=== PATIENT | female | born 1985 | race Caucasian/White ===

== ENCOUNTER → 2021-09-19 08:38 | Outpatient (BNVA) | payer MEDICAID, SELFPAY | PROVIDERS: PCP Family Medicine; Referring Provider Family Medicine; Visit Provider Surgery | DX: R22.42 Localized swelling, mass and lump, left lower limb (principal) | CPT/HCPCS: 99202 ==

== ENCOUNTER 2021-10-22 08:55 | Day surgery (SDC) | payer MEDICAID, SELFPAY ==
[2021-10-15 16:36] VITALS: BMI 40.2
[2021-10-22 09:11] VITALS: BP 129/87; PULSE 78; RESP 16; TEMP 36.3; O2SAT 97
[2021-10-22 09:11] LABS: UPreg QC Valid YES; Urine Pregnancy NEGATIVE (NEGATIVE)
[2021-10-22] MEDS: Lactated Ringers 1,000 ML 100 ML IVCONT (09:38)
--- NOTE | 2021-10-22 09:42 | P.HPSUR_ITS ---
Pre-Procedural Eval Section A Date of Service: 10/22/21 Section B Chief Complaint: mass and lump swelling Details of Present Illness: has mass on left medial thigh, increasing in size Relevant Family History (Specify if Yes): No Relevant Social History: None Present Medications: see Short Stay Collaborative assessment Medical History: Significant History (methadone maintenance) History of Previous Operations: No relevant previous surgery Allergies: Allergies Allergy/AdvReac Type Severity Reaction Status Date / Time hydrocodone [From VICODIN] Allergy Intermediate HIVES Verified 10/15/21 16:32 morphine [MORPHINE] Allergy Intermediate HIVES Verified 10/15/21 16:32 Review of Systems Sugical H&P ROS: Negative: Constitution, Cardiovascular, Respiratory, Neurological, Psychiatric, Hem-Onc, Allergic/Immunologic, Gastrointestinal, G enitourinary, Musculoskeletal, Integumentary, Endocrine and Eyes/Ears/Nose/Throat Exam Surgical H&P Exam: Normal: HEENT, Normal: Heart, Normal: Lungs, Normal: Abdomen, Normal: Skin and Normal: Neurological and Significant Findings: Extremities (large thigh mass on a stalk, medial aspect) Plan Diagnosis/Plan: Unchanged I have reviewed the history and physical and performed a pertinent physical examination on my patient. No changes have occurred unless specified.
--- NOTE | 2021-10-22 09:51 | P.CONAN_ITS ---
HPI - Anesthesia Eval Consult details Narrative: Excis left thigh mass PMFSH Active Problems Active Problems: All Active Problems (Updated 10/15/21 @ 16:35 by Bernice Lopez RN) Mass of left thigh (Acute) Methadone maintenance therapy patient (Acute) Past Medical History Medical History (Updated 10/15/21 @ 16:35 by Bernice Lopez RN) DDD (degenerative disc disease), lumbar Mass of left thigh Methadone maintenance therapy patient Mild heartburn Patient : No Family History Family history of problems with anesthesia: No Surgical History Surgical History H/O section History of back surgery History of tonsillectomy and adenoidectomy Hx of appendectomy History of Problems with Anesthesia: No Social History Social History (Updated 10/15/21 @ 16:34 by Bernice Lopez RN) Are you a primary behavioral health care coordinator to a significant other at home: Yes (2 minor children) Do you presently have visiting nurse or other home services: No Alcohol intake: never Patient Tobacco Use Status: Never used Tobacco Use of substances other than those prescribed or required for medical reasons: No Are you DNR?: No Advance Directives: No Advance Directives Information Provided: Yes Advance Directives on File: No Patient : No FDLMP: 10/13/2021 : No Poor oral hygiene: No Meds Allergies Allergy/AdvReac Type Severity Reaction Status Date / Time hydrocodone [From VICODIN] Allergy Intermediate HIVES Verified 10/15/21 16:32 morphine [MORPHINE] Allergy Intermediate HIVES Verified 10/15/21 16:32 Active Medications: Current Medications Lactated Ringer's (Lr) 1,000 mls @ 100 mls/hr IVCONT .Q10H ALIYA Last Admin: 10/22/21 09:38 Dose: 100 mls/hr Documented by: Home Medications Medication Instructions Recorded Confirmed Last Taken Type methadone 10 mg tablet 101 mg PO DAILY tab 09/19/21 09/19/21 10/22/21 History omeprazole 20 mg capsule,delayed 20 mg PO DAILY PRN 10/15/21 10/15/21 Unknown History release Exam Exam Date and Time: October 22, 2021 0951 Height,Weight and Vital Signs: Height 5 ft 2 in Weight 99.79 kg Last Vital Signs Temp 97.4 F 10/22/21 09:11 Pulse 78 10/22/21 09:11 Resp 16 10/22/21 09:11 BP 129/87 10/22/21 09:11 Pulse Ox 97 10/22/21 09:11 Pertinent Lab Results Pertinent Lab Results: Laboratory Tests 10/22/21 09:00 Urine Test NEGATIVE Airway Mallampati Class: I TM Dist: >3cm Neck ROM: Full Denture: Upper and Lower Heart: ok Lungs: ok Assessment and Plan Final Anesthetic Review Family History of Problems with Anesthesia: No History of Problems with Anesthesia: No NPO: Yes ASA Class: III Final Preanesthetic Review: No Changes in Pt Med Stat, Meds/Allgs Chart Reviewed, Consent Obtained/Reviewed and Anes Risks/Benef Reviewed Patient Risk: Intermediate Procedure Risk: Low Anesthetic Plan Anesthetic Plan: GA, MAC: and Agree w/ Assess. and Plan Disposition: Standard PACU
--- NOTE | 2021-10-22 10:51 | P.OP_ITS ---
Operative Note Operative Note Date of Service: 10/22/21 Narrative: Preop diagnosis: Large mass, medial left thigh Postop diagnosis: The same Procedure: Excision of large mass, medial aspect the left thigh Surgeon: Anson Roberto MD Special Education Resource Room Teacher: MIKE Maya student The patient is a 36-year-old female with a large mass on the left thigh, well- defined, with a narrowingl base, about a cm tall on initial exam. she understood the technique of excision under anesthesia. She was aware of the risks, benefits, and alternatives She was brought to the operating room placed in frogleg position under general anesthesia via laryngeal mask airway. The area of the left thigh which was on the very medial aspect was prepped and draped in the usual sterile fashion. A surgical time-out was done. I infiltrated the line incision with lidocaine 1%. I made an elliptical incision in the skin surrounding this lesion using blade 15. This was carried down through the full-thickness skin subcutaneous fat with electrocautery. We continued to dissect through the he is layer to excise the entire lesion. The mass actually extended deeper into the subcutaneous tissue so we had to continue to sharply dissect with Metzenbaum scissors to separate this from of the fat. This turned out to heavy much deeper base. I continued to separate this with dissection using Metzenbaum scissors and electrocautery until was able to deliver the entire specimen. This had well-defined planes ac tually. The mass measured 12.5 cm long by about 7.5 cm in widest dimension. I irrigated the area of excision. I used electrocautery to achieve hemostasis. Once hemostasis was ensured I reapposed the deep subcutaneous tissue with Dexon 3-0 interrupted sutures. Skin closure was achieved with 3-0 simple interrupted sutures. I infiltrated the area with Marcaine 0.5% for postop analgesia. Dressings were applied and the procedure was completed The patient tolerated procedure well. There were no complication noted. Initial and final counts of sponges and instruments were correct. Estimated blood loss was about 25 cc The patient was extubated without difficulty and transferred to the recovery room with stable vital signs.
--- NOTE | 2021-10-22 10:56 | PM.OP ---
Brief Operative Note Date of Service: 10/22/21 Pre-op diagnosis: large left thigh mass medial aspect Post-op diagnosis: same ( 12 by 7.5 cm) Procedure: excision of large left thigh mass, medial aspect Surgeon: Anson Roberto MD Anesthesia: GLMA Was an Flying [employer] Instructor used for this Procedure?: No Estimated blood loss (mL): 25 Pathology: other ( left eye mass) Condition: stable Disposition: PACU
[2021-10-22 10:58] VITALS: BP 120/70; PULSE 56; RESP 14; TEMP 37.1; O2SAT 98
[2021-10-22 11:03] VITALS: BP 119/65; PULSE 69; RESP 16; O2SAT 96
[2021-10-22 11:08] VITALS: BP 110/72; PULSE 62; RESP 16; O2SAT 97
[2021-10-22 11:13] VITALS: BP 111/76; PULSE 70; RESP 16; O2SAT 97
[2021-10-22] MEDS: oxyCODONE HCl Immed Release 5 MG TABLET 10 MG PO (11:13)
[2021-10-22] MEDS: Acetaminophen 325 MG TABLET 650 MG PO (11:16)
[2021-10-22 11:28] VITALS: BP 111/75; PULSE 60; RESP 16; O2SAT 97
--- NOTE | 2021-10-22 12:28 | PC.NURSE ---
SECURITY NOTIFIED AND PATIENT'S POCKET KNIFE WAS RETURNED TO HER FOR DISCHARGE. PATIENT ESCORTED TO HER RIDE AT FRONT DOOR OF HOSPITAL. NO DIFFICULTY.
== END 2021-10-22 12:26 | disposition home or self-care (01) ==
PROVIDERS: Nurse Practitioner; Visit Provider Surgery
PROC: (CPT 27337; principal; 2021-10-22 11:00)
DX: D17.24 Benign lipomatous neoplasm of skin and subcutaneous tissue of left leg (principal); R12 Heartburn; M51.36 Other intervertebral disc degeneration, lumbar region; Z98.890 Other specified postprocedural states; F11.20 Opioid dependence, uncomplicated; Z79.899 Other long term (current) drug therapy; Z88.8 Allergy status to other drugs, medicaments and biological substances
CPT/HCPCS: 27337; 81025; 88304; 88307; J0690; J1885; J2250; J2405; J3010

== ENCOUNTER → 2021-11-06 14:34 | Outpatient (BNVA) | payer MEDICAID, SELFPAY | PROVIDERS: PCP Family Medicine; Referring Provider Family Medicine; Visit Provider Surgery | DX: Z48.817 Encounter for surgical aftercare following surgery on the skin and subcutaneous tissue (principal); Z87.2 Personal history of diseases of the skin and subcutaneous tissue | CPT/HCPCS: 99212 ==